=== PATIENT | male | born 1980 | race African-American/Black ===

== ENCOUNTER 2019-01-26 17:03 | Emergency (ER) | payer BC ==
[~2019-01-26] VITALS: Ht 177.8 cm; Wt 87.0 kg
[2019-01-26 19:30] VITALS: BP 131/78
[2019-01-26] MEDS ORDERED: CEPHALEXIN 250MG CAPSULE PO ONE (19:30)
== END 2019-01-26 19:31 | disposition home or self-care (01) ==
LOC: ER 17:03
DX: L03.114 Cellulitis of left upper limb (principal); L29.8 Other pruritus
CPT/HCPCS: 99283